=== PATIENT | female | born 2000 | race Caucasian/White ===

== ENCOUNTER 2019-06-08 20:10 | Emergency (ER) | payer OTHER | END 2019-06-08 21:22 | disposition other institution (70) | LOC: ED 20:10 | DX: Z02.89 Encounter for other administrative examinations (principal) ==

== ENCOUNTER 2019-06-08 20:10 | Emergency (ER) | payer MEDICAID ==
[~2019-06-08] VITALS: Ht 170.2 cm; Wt 105.7 kg
[2019-06-08 20:12] VITALS: BP 110/77; Ht 170.2 cm; Wt 105.7 kg
== END 2019-06-08 21:22 | disposition other institution (70) ==
LOC: ED 20:10
DX: O26.892 Other specified pregnancy related conditions, second trimester (principal); Z3A.15 15 weeks gestation of pregnancy; Z02.89 Encounter for other administrative examinations